=== PATIENT | female | born 2000 | race Hispanic/Latino ===

== ENCOUNTER 2020-01-02 02:16 | Emergency (ER) | payer OTHER, SELFPAY ==
[2020-01-02 03:07] LABS: RAPID GROUP A STREP NEGATIVE (NEGATIVE)
[2020-01-02] MEDS ORDERED: PREDNISONE 20 MG TABLET ONE (04:40)
[2020-01-02] MEDS ORDERED: IBUPROFEN 400 MG TABLET ONE (04:40)
[2020-01-02] MEDS ORDERED: IPRATROPIUM/ALBUTEROL SULFATE 3 ML SOLUTION IH ONE (05:04)
== END 2020-01-02 05:17 | disposition home or self-care (01) ==
LOC: EDH 02:16
DX: J20.9 Acute bronchitis, unspecified (principal)
CPT/HCPCS: 71046; 81025; 87804; 87880; 93005; 94640